=== PATIENT | male | born 1960 | race Caucasian/White ===

== ENCOUNTER 2018-09-26 10:15 | Inpatient (IN) | payer OTHER ==
[~2018-09-26 10:15] MED LIST: ceFAZolin 2 GM in Premix Bag 1 BAG IV SCH
[2018-09-26] MEDS ORDERED: Midazolam 1 MG/ML 2 ML SDV ONE (12:46)
[2018-09-26] MEDS ORDERED: fentaNYL 100 MCG/2 ML SDV ONE (12:46)
--- NOTE | 2018-09-26 12:46 | PCM.PREANE ---
Preanesthetic Assessment - Anesthesia/Transfusion/Family Hx Anesthesia History: Prior Anesthesia Without Reaction Family History of Anesthesia Reaction: No Transfusion History: No Prior Transfusion(s) - Review of Systems General: No Symptoms Pulmonary: No Symptoms Cardiovascular: No Symptoms Gastrointestinal: No Symptoms Other: Reports: None - Physical Assessment Height: 5 ft 10 in Weight: 68.039 kg ASA Class: 2 Mental Status: Alert & Oriented x3 Airway Class: Mallampati = 2 Dentition: Reports: Normal Dentition ROM/Head Extension: Full Lungs: Clear to Auscultation, Normal Respiratory Effort Cardiovascular: Regular Rate, Regular Rhythm - Allergies Allergies/Adverse Reactions: Allergies Allergy/AdvReac Type Severity Reaction Status Date / Time triple antibiotic ointment Allergy Itching Uncoded 09/21/18 15:21 - Blood Blood Available: No - Anesthesia Plan Pre-Op Medication Ordered: None - Acknowledgements Anesthesia Type Planned: Spinal Pt an Appropriate Candidate for the Planned Anesthesia: Yes Alternatives and Risks of Anesthesia Discussed w Pt/Guardian: Yes Pt/Guardian Understands and Agrees with Anesthesia Plan: Yes Additional Comments: PMH: smoker, chronic hep C, chronic LBP, PLAN: spinal with sedation PreAnesthesia Questionnaire - Past Health History Medical/Surgical History: Denies Medical/Surgical History HEENT History: Reports: Other (See Below) Other HEENT History: wears glasses Cardiovascular History: Reports: None Respiratory History: Reports: None Gastrointestinal History: Reports: Hepatitis Other Gastrointestinal History: states Hepatitis C positive, has not taken tx for this Genitourinary History: Reports: None Musculoskeletal History: Reports: Other (See Below) Other Musculoskeletal History: DJD Neurological History: Reports: Concussion Psychiatric History: Reports: PTSD Other Psychiatric History: does not take any medications Endocrine/Metabolic History: Reports: None Hematologic History: Reports: None Immunologic History: Reports: None Oncologic (Cancer) History: Reports: None Dermatologic History: Reports: Other (See Below) Other Dermatologic History: wound to rt hand, on antibiotics which will be completed prior to surgery - Infectious Disease History Infectious Disease History: Reports: None - Past Surgical History Head Surgeries/Procedures: Reports: None Musculoskeletal Surgical History: Reports: Hip Replacement, Other (See Below) Other Musculoskeletal Surgeries/Procedures:: left hip replaced twice (partial x1 , total x1), had rt hand debridement with Dr. Scott approximately 3 weeks ago, is currently on antibiotics for this, states will have completed prior to surgery and states his hand is healing well. - SUBSTANCE USE Smoking Status *Q: Current Every Day Smoker Tobacco Use Within Last Twelve Months: Cigarettes Recreational Drug Use History: Yes Recreational Drug Type: Reports: Marijuana/Hashish - HOME MEDS Home Medications: Home Meds . [No Known Home Meds] 09/21/18 [History] - CURRENT (IN HOUSE) MEDS Current Meds: Current Medications Cefazolin Sodium/Dextrose 2 gm (/ Premix) 50 mls @ 100 mls/hr IV ONETIME TIARRA Lactated Ringer's (Ringers, Lactated) 1,000 mls @ 125 mls/hr IV ASDIRECTED TIARRA Discontinued Medications Tranexamic Acid (Cyklokapron) 2,000 mg IV ONETIME ONE Stop: 09/26/18 07:01
[2018-09-26] MEDS ORDERED: Propofol 200 MG/20 ML SDV ONE (12:47)
[2018-09-26] MEDS: Lactated Ringers 1,000 ML IV SCH ×2 (12:49→21:23)
[2018-09-26] MEDS ORDERED: ceFAZolin/Dextrose,Iso-Osmotic 2 GM/50 ML Duplex Bag IV ONE (13:22)
[2018-09-26] MEDS ORDERED: ePHEDrine 50 MG/ML SDV ONE (13:55)
--- NOTE | 2018-09-26 15:21 | PCM.OPNOTE ---
- General Post-Op/Procedure Note Date of Surgery/Procedure: 09/26/18 Operative Procedure(s): right anterior total hip arthroplasty Findings: severe OA Pre Op Diagnosis: right hip osteoarthritis Post-Op Diagnosis: same Anesthesia Technique: Moderate Sedation, Spinal Primary Surgeon: Diony Carreon Mai Operator Technician: Lois Dickerson Pathology: femoral head EBL in mLs: 200 Complications: none Condition: Good
[2018-09-26] MEDS ORDERED: diphenhydrAMINE 25 MG Cap PO PRN (15:25)
[2018-09-26] MEDS ORDERED: Aluminum Hydroxide/Magnesium Hydroxide/Simethicone Susp 30 ML Cup PO PRN (15:25)
[2018-09-26] MEDS ORDERED: Ondansetron 4 MG/2 ML SDV IVPUSH PRN (15:25)
[2018-09-26] MEDS ORDERED: Docusate Sodium 100 MG Cap PO PRN (15:25)
[2018-09-26] MEDS ORDERED: Sodium Chloride 0.9% 2.5 ML Syringe FLUSH PRN (15:25)
[2018-09-26] MEDS ORDERED: Sodium Chloride 0.9% 10 ML Syringe FLUSH PRN (15:25)
[2018-09-26] MEDS ORDERED: Bisacodyl 10 MG Supp RECTAL PRN (15:25)
[2018-09-26] MEDS ORDERED: fentaNYL 100 MCG/2 ML SDV IVPUSH PRN (15:33)
[2018-09-26] MEDS ORDERED: HYDROmorphone 2 MG/ML SDV IVPUSH ONE (15:33)
[2018-09-26] MEDS ORDERED: HYDROmorphone 2 MG/ML Syringe IVPUSH ONE (15:45)
--- NOTE | 2018-09-26 15:54 | PCM.POSTAN ---
POST ANESTHESIA ASSESSMENT - MENTAL STATUS Mental Status: Alert, Oriented - RESPIRATORY Respiratory Status: Respiratory Rate WNL, Airway Patent, O2 Saturation Stable - CARDIOVASCULAR CV Status: Pulse Rate WNL, Blood Pressure Stable - GASTROINTESTINAL GI Status: No Symptoms - POST OP HYDRATION Hydration Status: Adequate & Stable
[2018-09-26] MEDS: Acetaminophen/HYDROcodone 325-5 MG Tab PO PRN (18:40)
[2018-09-26] MEDS ORDERED: Morphine 2 MG/ML Syringe IVPUSH PRN (18:55)
[2018-09-26] MEDS: ceFAZolin 2 GM in Premix Bag 1 BAG IV SCH (21:22)
[2018-09-27] MEDS: Acetaminophen/HYDROcodone 325-5 MG Tab PO PRN ×2 (03:14→08:28)
[2018-09-27] MEDS: ceFAZolin 2 GM in Premix Bag 1 BAG IV SCH (04:39)
[2018-09-27] MEDS ORDERED: Morphine 2 MG/ML Syringe IVPUSH PRN (06:00)
--- NOTE | 2018-09-27 06:41 | OR ---
SURGEON: Diony Casey MD DATE OF PROCEDURE: 09/26/2018 SPINDLE MAKER: Lois Dickerson PA-C. PREOPERATIVE DIAGNOSIS: Right hip osteoarthritis, severe. OPERATION PERFORMED: Right anterior total hip arthroplasty. ANESTHESIA: Spinal with sedation. COMPLICATIONS: None. ESTIMATED BLOOD LOSS: 200 mL. SPECIMENS: None. IMPLANTS: Damián Continuum trabecular metal shell with cluster holes, 54 mm outer diameter; Vivacit-E neutral liner, 36 mm inner diameter; one 6.5 x 30 mm length bone screw; Fitmore hip stem B extended offset size 10; and Biolox delta ceramic femoral head 36 mm, +3.5 neck length. INDICATIONS: The patient is a 58-year-old male with severe arthritis with collapse and acetabular erosion. He wished to undergo replacement. He understands the risks, benefits, and complications. These include, but not limited to, infection, neurovascular injury, continued pain or symptoms, DVT, PE, stroke, AK, , leg-length discrepancy, fracture, dislocation, and he wished to proceed. DESCRIPTION OF PROCEDURE: The patient was seen in the preoperative area. Operative extremity was marked of the patient. He was transferred to the operating room, where spinal anesthesia was given. He was placed supine on the Corona table, and sedation was given. The legs were placed in the leg bars with a narrow perineal post. Right hip was prepped and draped in the usual sterile fashion using alcohol followed by ChloraPrep. A formal time-out was taken, identifying the correct patient, procedure, and extremity. He received 2 g of TXA and Ioban coverings over the incision. Legs were placed in the leg bars on the Corona table. An 8 cm incision started lateral to the ASIS going obliquely to the femur was made. Dissection was carried down into subcutaneous tissues. Hemostasis was obtained. Fascia overlying the TFL lateral to the lateral femoral cutaneous nerve was opened and the interval between the TFL and sartorius deep between the abductors and rectus was opened. A deep Reginald retractor was placed. The anterior vessels were coagulated and the vastus lateralis fascia was opened. Two capsules held and tagged with two sutures. He had severe osteoarthritis with severe shortening. There were large osteophytes of the acetabulum obliterating the neck, can actually only seen about 1.5 cm of the neck. Neck was then cut from saddle region to 1 cm above the lesser trochanter and the head was with much diligence removed. There was severe arthritis with collapse and severe acetabular erosion going superiorly. The osteophytes were removed as well, and the inferior capsule was released, and then the hip was sequentially reamed from 47 up to 53 mm with excellent fit and fill. However, it was in far due to the severe acetabular bone loss and decision was made to stick with the size rather than to go up. Therefore, after irrigating, the Continuum trabecular metal shell with cluster holes was placed 10 degrees of anteversion and 40 degrees of abduction. One straight superior bone screw was placed and then inferior osteophytes removed with an osteotome under fluoroscopic control removing some of them to allow for better motion and then neutral liner was impacted after irrigating. The leg was externally rotated, abducted, and extended and placed in femoral lift. The superior capsule was released and the obturator internus and piriformis. It was noted that the capsule was almost an inch thick and had to be debulked during the case as well as synovitis removed. There were osteophytes throughout the hip including into the trochanter, which were also removed. The central canal finder was utilized. Hip was sequentially broached up to size B 9, was reduced to extended offset 0 neck length. The x-ray showed the hip be short than the other side slightly. Therefore, the hip was dislocated. It was broached up to size 10 following the [place] version. It was trial reduced with extended offset +3.5 neck length. Printed overlay technique showed essentially equal leg lengths and offset compared to the opposite side. Therefore, the hip was dislocated. The trial components were removed and the wound was thoroughly irrigated. Synovectomy was completed and then the B 10 extended offset stem was impacted following the [place] version and +3.5 Simeon taper, 36 mm inner diameter head was impacted. The hip was relocated with stable range of motion. It was able to externally rotate to 120 degrees, slightly extend. There was no dislocation and it was stable to deep flexion. Two tag sutures were tied together. The wound was thoroughly irrigated. The fascia was closed with #1 Vicryl, subcutaneous tissues with #2-0 Vicryl, skin with running 4-0 Monocryl with Dermabond tape. Aquacel dressing was placed. The patient was transferred to the recovery room in stable condition. Sponge and needle counts were correct at the end of the case with no complications. He will have weightbearing as tolerated with aspirin for DVT prophylaxis. ESTELA OLSEN /[id number]
--- NOTE | 2018-09-27 07:34 | PCM.SN ---
- Free Text/Narrative Note: S: pain well controlled. has not ambulated yet. tolerating PO. No other issues. O: afebrile, vital signs stable dressing clean/dry/intact. normal sensation and motor distally. 2+ DP. no selling in thigh or distally A/P: POD # 1 left anterior ANGEL - full weight bearing with walker - xarelto/SCDs for DVT prophylaxis - to home today.
--- NOTE | 2018-09-27 07:58 | PCM48HPAN ---
Post Anesthesia Note - EVALUATION WITHIN 48HRS OF ANESTHETIC Vital Signs in Normal Range: Yes Patient Participated in Evaluation: Yes Respiratory Function Stable: Yes Airway Patent: Yes Cardiovascular Function Stable: Yes Hydration Status Stable: Yes Pain Control Satisfactory: Yes Nausea and Vomiting Control Satisfactory: Yes Mental Status Recovered: Yes Resp Rate: 17 - COMMENTS/OBSERVATIONS Free Text/Narrative:: Pt doing well post op. States that pain was well controlled overnight with only one episode of breakthrough that was treated. No nausea.
[2018-09-27] MEDS ORDERED: Aspirin 325 MG Tab PO SCH (09:00)
[2018-09-27] MEDS ORDERED: Polyethylene Glycol 3350 Powder 17 GM Packet PO SCH (09:00)
[2018-09-27] MEDS ORDERED: Famotidine 20 MG Tab PO SCH (09:00)
[2018-09-27] MEDS ORDERED: Celecoxib 100 MG Cap PO SCH (09:00)
[2018-09-27 11:40] VITALS: BP 118/71
--- NOTE | 2018-09-27 15:41 | CR ---
EXAMINATION: Right hip HISTORY: Arthroplasty COMPARISON: None TECHNIQUE: 2 fluoroscopic images provided FINDINGS/IMPRESSION: Operative control films demonstrate right total hip hardware noted with overlying postoperative changes.
--- NOTE | 2018-09-28 13:33 | PCM.DCSUM1 ---
Discharge Summary - Hospital Course Brief History: Patient is admitted for elective hip replacement Diagnosis: Stroke: No - Discharge Data Discharge Date: 09/27/18 Discharge Disposition: Home, Self-Care 01 Condition: Good - Patient Summary/Data Operative Procedure(s) Performed: right anterior total hip arthroplasty Consults: Consultations 09/26/18 15:25 PT Evaluation and Treatment [CONS] Routine Hospital Course: He was admitted and underwent uneventful hip replacement. Postoperatively he was admitted to the floor where pain was controlled and diet was advanced. He participated in therapy and did well and was subsequently discharged home on postoperative day #1 - Patient Instructions Diet: Usual Diet as Tolerated Activity: Apply Ice, Full Weight Bearing Driving: Do Not Drive Showering/Bathing: May Shower Wound/Incision Care: Keep Operative Site/Wound Site Clean and Dry, Do NOT Change Dressing Notify Provider of: Fever, Drainage - Discharge Plan *PRESCRIPTION DRUG MONITORING PROGRAM REVIEWED*: Yes *COPY OF PRESCRIPTION DRUG MONITORING REPORT IN PATIENT CHARLIE: No Home Medications: Home Meds Acetaminophen 1,000 mg PO DAILY PRN 09/26/18 [History] Ibuprofen 800 mg PO DAILY PRN 09/26/18 [History] Patient Handouts: Acetaminophen; Hydrocodone tablets or capsules, Mesalamine delayed-release, Total Hip Replacement, [id number], Total Hip Replacement, Care After, [id number], Docusate capsules Referrals: Lois Dickerson PA [Physician [employer] Thread Machine Operator] - 10/11/18 3:20 pm - Discharge Summary/Plan Comment DC Time >30 min.: No - Patient Data Vitals - Most Recent: Last Vital Signs Temp 36.6 C 09/27/18 11:40 Pulse 86 09/27/18 11:40 Resp 16 09/27/18 11:40 BP 118/71 09/27/18 11:40 Pulse Ox 98 09/27/18 11:40 Weight - Most Recent: 68.039 kg Med Orders - Current: Current Medications Discontinued Medications Hydrocodone Bitart/Acetaminophen ([place] 325-5 Mg) 1 - 2 tab PO Q4H PRN PRN Reason: Pain Last Admin: 09/27/18 08:28 Dose: 2 tab Al Hydroxide/Mg Hydroxide (Mag-Al Plus) 30 ml PO Q4H PRN PRN Reason: Indigestion Aspirin (Aspirin) 325 mg PO BID TIARRA Last Admin: 09/27/18 08:28 Dose: 325 mg Bisacodyl (Dulcolax) 10 mg RECTAL DAILY PRN PRN Reason: Constipation Cefazolin Sodium/Dextrose (Ancef) Confirm Administered Dose 2 gm IV .STK-MED ONE Stop: 09/26/18 13:23 Last Admin: 09/26/18 16:56 Dose: Not Given Celecoxib (Celebrex) 200 mg PO BID [facility] Last Admin: 09/27/18 08:28 Dose: 200 mg Diphenhydramine HCl (Benadryl) 25 - 50 mg PO Q6H PRN PRN Reason: Itching Docusate Sodium (Colace) 100 mg PO BID PRN PRN Reason: Constipation Ephedrine Sulfate (Ephedrine Sulfate) Confirm Administered Dose 50 mg .ROUTE .STK-MED ONE Stop: 09/26/18 13:56 Famotidine (Pepcid) 40 mg PO DAILY [facility] Last Admin: 09/27/18 08:28 Dose: 40 mg Fentanyl (Sublimaze) Confirm Administered Dose 100 mcg .ROUTE .STK-MED ONE Stop: 09/26/18 12:47 Fentanyl (Sublimaze) 50 mcg IVPUSH Q5M PRN PRN Reason: Pain (severe 7-10) Stop: 09/27/18 15:34 Hydromorphone HCl (Dilaudid) 2 mg IVPUSH ONETIME ONE Stop: 09/26/18 15:34 Last Admin: 09/26/18 16:56 Dose: Not Given Hydromorphone HCl (Dilaudid) 2 mg IVPUSH ONETIME ONE Stop: 09/26/18 15:46 Last Admin: 09/26/18 16:56 Dose: Not Given Cefazolin Sodium/Dextrose 2 gm (/ Premix) 50 mls @ 100 mls/hr IV ONETIME [facility] Lactated Ringer's (Ringers, Lactated) 1,000 mls @ 125 mls/hr IV ASDIRECTED [facility] Last Admin: 09/26/18 21:23 Dose: 125 mls/hr Cefazolin Sodium/Dextrose 2 gm (/ Premix) 50 mls @ 100 mls/hr IV Q8H [facility] Stop: 09/27/18 05:59 Last Admin: 09/27/18 04:39 Dose: 100 mls/hr Midazolam HCl (Versed 1 Mg/Ml) Confirm Administered Dose 2 mg .ROUTE .STK-MED ONE Stop: 09/26/18 12:47 Morphine Sulfate (Morphine) 1 - 3 mg IVPUSH Q3H PRN PRN Reason: Pain Morphine Sulfate (Morphine) 1 - 3 mg IVPUSH Q3H PRN PRN Reason: Pain Last Admin: 09/26/18 21:59 Dose: 2 mg Ondansetron HCl (Zofran) 4 mg IVPUSH Q6H PRN PRN Reason: Nausea/Vomiting Polyethylene Glycol (Miralax) 17 gm PO DAILY TIARRA Last Admin: 09/27/18 08:31 Dose: 17 gm Propofol (Diprivan 20 Ml) Confirm Administered Dose 600 mg .ROUTE .STK-MED ONE Stop: 09/26/18 12:48 Sodium Chloride (Saline Flush) 10 ml FLUSH ASDIRECTED PRN PRN Reason: Keep Vein Open Sodium Chloride (Saline Flush) 2.5 ml FLUSH ASDIRECTED PRN PRN Reason: Keep Vein Open Tranexamic Acid (Cyklokapron) 2,000 mg IV ONETIME ONE Stop: 09/26/18 07:01 Last Admin: 09/26/18 16:55 Dose: Not Given Tranexamic Acid (Cyklokapron) Confirm Administered Dose 2,000 mg .ROUTE .STK- MED ONE Stop: 09/26/18 12:57
== END 2018-09-27 14:40 | disposition home or self-care (01) | DRG 470 ==
LOC: MW.MS 11:54
PROVIDERS: ADMIT Orthopaedic Surgery; ATTEND Orthopaedic Surgery
PROC: 0SR904Z Replacement of Right Hip Joint with Ceramic on Polyethylene Synthetic Substitute, Open Approach (ICD-10-PCS; principal; 2018-09-26)
DX: M16.11 Unilateral primary osteoarthritis, right hip (principal); F17.200 Nicotine dependence, unspecified, uncomplicated; G89.29 Other chronic pain; F43.10 Post-traumatic stress disorder, unspecified; M25.751 Osteophyte, right hip; M54.5 Low back pain; B18.2 Chronic viral hepatitis C; Z79.899 Other long term (current) drug therapy; Z96.642 Presence of left artificial hip joint; Z79.82 Long term (current) use of aspirin; Z88.8 Allergy status to other drugs, medicaments and biological substances
CPT/HCPCS: 36415; 76000; 76000-26; 85014; 85018; 97110-GP; 97161-GP; A9270-GY; C1713; C1776; J0690; J2250; J2270; J2704; J3010; J7120

== ENCOUNTER 2018-10-13 10:34 | Emergency (ER) | payer OTHER ==
[2018-10-13] MEDS ORDERED: Sodium Chloride 0.9% 2.5 ML Syringe FLUSH PRN (10:45)
[2018-10-13] MEDS ORDERED: Sodium Chloride 0.9% 10 ML Syringe FLUSH PRN (10:45)
--- NOTE | 2018-10-13 11:10 | EDM.PDOC ---
ED HPI GENERAL MEDICAL PROBLEM - General Chief Complaint: Respiratory Problem Stated Complaint: LIGHT HEADED SHORTNESS OF BREATH Time Seen by Provider: 10/13/18 10:55 Source of Information: Reports: Patient History Limitations: Reports: No Limitations - History of Present Illness INITIAL COMMENTS - FREE TEXT/NARRATIVE: HISTORY AND PHYSICAL: History of present illness: Patient is a 58-year-old male who presents to the emergency room with complaints of shortness of breath and feeling lightheaded when ambulating. He states symptoms started this morning and mentions concern of his postoperative hip. He had a total hip replacement on September 06, 2018. He has had some intermittent pain and irritation of the affected right hip. He did see the orthopedic provider this last Wednesday who encouraged him to keep a close eye on her postop site as they were concerned about possible infection (per patient). He states he has been ambulatory and has had no calf swelling, erythema or pain. He denies any chest pain, cough, fever or chills. He denies any abdominal pain, nausea, vomiting, diarrhea, constipation or dysuria. Review of systems: As per history of present illness and below otherwise all systems reviewed and negative. Past medical history: As per history of present illness and as reviewed below otherwise noncontributory. Surgical history: As per history of present illness and as reviewed below otherwise noncontributory. Social history: See social history for further information Family history: As per history of present illness and as reviewed below otherwise noncontributory. Physical exam: General: Well-developed and well-nourished 58-year-old male. Alert and oriented. Nontoxic appearing and in no acute distress. HEENT: Atraumatic, normocephalic, pupils equal and reactive bilaterally, negative for conjunctival pallor or scleral icterus, mucous membranes moist, TMs normal bilaterally, throat clear, neck supple, nontender, trachea midline. No drooling or trismus noted. No meningeal signs. No hot potato voice noted. Lungs: Clear to auscultation, breath sounds equal bilaterally, chest nontender. Heart: S1S2, regular rate and rhythm without overt murmur Abdomen: Soft, nondistended, nontender. Negative for masses or hepatosplenomegaly. Negative for costovertebral tenderness. Pelvis: Stable nontender. Genitourinary: Deferred. Rectal: Deferred. Skin: Postoperative site on the right hip has scab but well approximated. The surrounding skin is erythematous and warm to touch. Otherwise skin is intact, warm, dry. No lesions or rashes noted. Extremities: Atraumatic, moves all per self, right hip surgery, negative for cords or calf pain. Neurovascular unremarkable. Neuro: Awake, alert, oriented. Cranial nerves II through XII unremarkable. Cerebellum unremarkable. Motor and sensory unremarkable throughout. Exam nonfocal. Notes: I did talk with IRVING Magdaleno with Dr. Ley in the orthopedic clinic who did see this patient yesterday. She states that the hip did appear mildly erythematous and expected it due to the patient not having kept the postoperative site covered as expected. Patient was fully able to bear weight and had range of motion. Encouraged him to keep an eye on the site and keep her informed if any changes had occurred. I did tell her that the area was erythematous and felt warm to touch. Encouraged that we start him on Bactrim DS twice a day 10 days and she will see him tomorrow in the clinic at 1 PM unless he has any other reason for admission. D-dimer was elevated, CT of the chest was done to rule out PE. Slight elevation in WBC. Will give a 250ml bolus NS. VSS. CT of the chest shows suboptimal pulmonary arterial opacification, no central PE identified. A small PE could go undetected. Central lobular emphysema noted. Healed granulomatous disease. Vital signs are stable. All testing results were reviewed and discussed with patient. Discussed admission versus outpatient therapy. He is requesting to be discharged to home. We'll give the patient 1 g of Rocephin IV and prescribed the Bactrim DS. Encourage the patient to keep his appointment that we have set up with him with the orthopedic provider for tomorrow. He is agreeable to plan of care. Denies any further questions or concerns at this time. Diagnostics: CBC, CMP, Ddimer, Troponin, EKG, CXR, Right Hip Therapeutics: IV fluids, Solumedrol IV, Duo Neb, Rocephin, Bactrim DS Prescription: Bactrim DS Impression: Postoperative soft tissue infection Emphysema Plan: 1. Continue to keep the postoperative incision site clean and dry. Monitor for signs of improvement 2. Take the Bactrim the DS as directed. Continue with Tylenol and/or ibuprofen as needed for pain management. 3. Lois VILLATORO at the orthopedic provider at building will see you tomorrow at 1pm for re-evaluation. Please attend this appointment. 4. Return to the ED as needed and as discussed. Definitive disposition and diagnosis as appropriate pending reevaluation and review of above. Onset: Today - Related Data Allergies Allergy/AdvReac Type Severity Reaction Status Date / Time triple antibiotic ointment Allergy Itching Uncoded 10/13/18 10:41 Home Meds: Home Meds Acetaminophen 1,000 mg PO DAILY PRN 09/26/18 [History] Ibuprofen 800 mg PO DAILY PRN 09/26/18 [History] Aspirin 1 tab PO DAILY 10/13/18 [History] Past Medical History - Past Health History Medical/Surgical History: Denies Medical/Surgical History HEENT History: Reports: Other (See Below) Other HEENT History: wears glasses Cardiovascular History: Reports: None Respiratory History: Reports: None Gastrointestinal History: Reports: Hepatitis Other Gastrointestinal History: states Hepatitis C positive, has not taken tx for this Genitourinary History: Reports: None Musculoskeletal History: Reports: Other (See Below) Other Musculoskeletal History: DJD Neurological History: Reports: Concussion Psychiatric History: Reports: PTSD Other Psychiatric History: does not take any medications Endocrine/Metabolic History: Reports: None Hematologic History: Reports: None Immunologic History: Reports: None Oncologic (Cancer) History: Reports: None Dermatologic History: Reports: Other (See Below) Other Dermatologic History: wound to rt hand, on antibiotics which will be completed prior to surgery - Infectious Disease History Infectious Disease History: Reports: Hepatitis C - Past Surgical History Head Surgeries/Procedures: Reports: None Musculoskeletal Surgical History: Reports: Hip Replacement, Other (See Below) Other Musculoskeletal Surgeries/Procedures:: left hip replaced twice (partial x1 , total x1), had rt hand debridement with Dr. Scott approximately 3 weeks ago, is currently on antibiotics for this, states will have completed prior to surgery and states his hand is healing well. Social & Family History - Family History Family Medical History: Noncontributory - Tobacco Use Smoking Status *Q: Current Every Day Smoker Years of Tobacco use: 10 Packs/Tins Daily: 0.5 - Caffeine Use Caffeine Use: Reports: None - Recreational Drug Use Recreational Drug Use: No ED ROS GENERAL - Review of Systems Review Of Systems: ROS reveals no pertinent complaints other than HPI. ED EXAM, GENERAL - Physical Exam Exam: See Below (See dictation) Course - Vital Signs Last Recorded V/S: Last Vital Signs Temp 99.4 F 10/13/18 12:03 Pulse 95 10/13/18 12:03 Resp 18 10/13/18 12:03 BP 150/90 H 10/13/18 12:03 Pulse Ox 99 10/13/18 12:03 - Orders/Labs/Meds Orders: Active Orders 24 hr Category Date Time Status EKG Documentation Completion [RC] STAT Care 10/13/18 10:45 Active RT Aerosol Therapy [RC] ASDIRECTED Care 10/13/18 13:19 Ordered Hip Min 2V or 3V Rt [CR] Stat Exams 10/13/18 11:20 Taken CULTURE BLOOD [BC] Stat Lab 10/13/18 11:43 Ordered CULTURE BLOOD [BC] Stat Lab 10/13/18 11:57 Received Albuterol/Ipratropium [DuoNeb 3.0-0.5 MG/3 ML] Med 10/13/18 13:18 Once 3 ml NEB ONETIME ONE Sodium Chloride 0.9% [Normal Saline] 1,000 ml Med 10/13/18 12:47 Ordered IV STAT Sodium Chloride 0.9% [Saline Flush] Med 10/13/18 10:45 Active 10 ml FLUSH ASDIRECTED PRN Sodium Chloride 0.9% [Saline Flush] Med 10/13/18 10:45 Active 2.5 ml FLUSH ASDIRECTED PRN cefTRIAXone [Rocephin in Dextrose,Iso-Osm 1 GM/50 ML] 1 Med 10/13/18 13:12 Ordered gm Premix Bag 1 bag IV ONETIME methylPREDNISolone Sod Succ [Solu-MEDROL] Med 10/13/18 13:18 Once 125 mg IVPUSH ONETIME ONE Blood Culture x2 Reflex Set [OM.PC] Stat Oth 10/13/18 11:43 Ordered Saline Lock Insert [OM.PC] Stat Oth 10/13/18 10:45 Ordered Medication Orders Sodium Chloride (Normal Saline) 1,000 mls @ 999 mls/hr IV STAT ONE Stop: 10/13/18 13:47 Last Admin: 10/13/18 12:59 Dose: 999 mls/hr Ceftriaxone Sodium/Dextrose 1 (gm/ Premix) 50 mls @ 100 mls/hr IV ONETIME ONE Stop: 10/13/18 13:41 Last Admin: 10/13/18 13:18 Dose: 100 mls/hr Sodium Chloride (Saline Flush) 10 ml FLUSH ASDIRECTED PRN PRN Reason: Keep Vein Open Sodium Chloride (Saline Flush) 2.5 ml FLUSH ASDIRECTED PRN PRN Reason: Keep Vein Open Labs: Laboratory Tests 10/13/18 10/13/18 10/13/18 Range/Units 10:53 10:53 10:53 WBC 13.11 H (4.0-11.0) K/uL RBC 3.74 L (4.50-5.90) M/uL Hgb 10.1 L (13.0-17.0) g/dL Hct 31.1 L (38.0-50.0) % MCV 83.2 (80.0-98.0) fL MCH 27.0 (27.0-32.0) pg MCHC 32.5 (31.0-37.0) g/dL RDW Std Deviation 46.0 (28.0-62.0) fl RDW Coeff of Tolu 15 (11.0-15.0) % Plt Count 476 H (150-400) K/uL MPV 8.10 (7.40-12.00) fL Neut % (Auto) 85.0 H (48.0-80.0) % Lymph % (Auto) 5.3 L (16.0-40.0) % Robeson % (Auto) 8.2 (0.0-15.0) % Eos % (Auto) 1.3 (0.0-7.0) % Baso % (Auto) 0.2 (0.0-1.5) % Neut # (Auto) 11.2 H (1.4-5.7) K/uL Lymph # (Auto) 0.7 (0.6-2.4) K/uL Robeson # (Auto) 1.1 H (0.0-0.8) K/uL Eos # (Auto) 0.2 (0.0-0.7) K/uL Baso # (Auto) 0.0 (0.0-0.1) K/uL Nucleated RBC % 0.0 /100WBC Nucleated RBCs # 0 K/uL INR D-Dimer, Quantitative 5.56 H (0.0-0.50) mg/L FEU Lactate (0.20-2.00) mmol/L Sodium 133 L (136-148) mmol/L Potassium 4.1 (3.5-5.1) mmol/L Chloride 98 (98-107) mmol/L Carbon Dioxide 26.2 (21.0-32.0) mmol/L BUN 11 (7.0-18.0) mg/dL Creatinine 0.9 (0.8-1.3) mg/dL Est Cr Clr Drug Dosing 84.00 mL/min Estimated GFR (MDRD) > 60.0 ml/min Glucose 106 (74-106) mg/dL Calcium 9.1 (8.5-10.1) mg/dL Total Bilirubin 0.5 (0.2-1.0) mg/dL AST 20 (15-37) IU/L ALT 19 (14-63) IU/L Alkaline Phosphatase 168 H (46-116) U/L Troponin I < 0.050 (0.000-0.056) ng/mL Total Protein 7.1 (6.4-8.2) g/dL Albumin 3.0 L (3.4-5.0) g/dL Globulin 4.1 H (2.6-4.0) g/dL Albumin/Globulin Ratio 0.7 L (0.9-1.6) 10/13/18 10/13/18 Range/Units 10:53 11:57 WBC (4.0-11.0) K/uL RBC (4.50-5.90) M/uL Hgb (13.0-17.0) g/dL Hct (38.0-50.0) % MCV (80.0-98.0) fL MCH (27.0-32.0) pg MCHC (31.0-37.0) g/dL RDW Std Deviation (28.0-62.0) fl RDW Coeff of Tolu (11.0-15.0) % Plt Count (150-400) K/uL MPV (7.40-12.00) fL Neut % (Auto) (48.0-80.0) % Lymph % (Auto) (16.0-40.0) % Robeson % (Auto) (0.0-15.0) % Eos % (Auto) (0.0-7.0) % Baso % (Auto) (0.0-1.5) % Neut # (Auto) (1.4-5.7) K/uL Lymph # (Auto) (0.6-2.4) K/uL Robeson # (Auto) (0.0-0.8) K/uL Eos # (Auto) (0.0-0.7) K/uL Baso # (Auto) (0.0-0.1) K/uL Nucleated RBC % /100WBC Nucleated RBCs # K/uL INR 1.12 D-Dimer, Quantitative (0.0-0.50) mg/L FEU Lactate 1.3 (0.20-2.00) mmol/L Sodium (136-148) mmol/L Potassium (3.5-5.1) mmol/L Chloride (98-107) mmol/L Carbon Dioxide (21.0-32.0) mmol/L BUN (7.0-18.0) mg/dL Creatinine (0.8-1.3) mg/dL Est Cr Clr Drug Dosing mL/min Estimated GFR (MDRD) ml/min Glucose (74-106) mg/dL Calcium (8.5-10.1) mg/dL Total Bilirubin (0.2-1.0) mg/dL AST (15-37) IU/L ALT (14-63) IU/L Alkaline Phosphatase (46-116) U/L Troponin I (0.000-0.056) ng/mL Total Protein (6.4-8.2) g/dL Albumin (3.4-5.0) g/dL Globulin (2.6-4.0) g/dL Albumin/Globulin Ratio (0.9-1.6) Meds: Medications Generic Name Dose Route Start Last Admin Trade Name Freq PRN Reason Stop Dose Admin Sodium Chloride 1,000 mls @ 999 mls/hr 10/13/18 12:47 10/13/18 12:59 Normal Saline IV 10/13/18 13:47 999 mls/hr STAT ONE Administration Ceftriaxone Sodium/Dextrose 1 50 mls @ 100 mls/hr 10/13/18 13:12 10/13/18 13: 18 gm/ Premix IV 10/13/18 13:41 100 mls/hr ONETIME ONE Administration Sodium Chloride 10 ml 10/13/18 10:45 Saline Flush FLUSH ASDIRECTED PRN Keep Vein Open Sodium Chloride 2.5 ml 10/13/18 10:45 Saline Flush FLUSH ASDIRECTED PRN Keep Vein Open Discontinued Medications Generic Name Dose Route Start Last Admin Trade Name Freq PRN Reason Stop Dose Admin Iopamidol 50 ml 10/13/18 12:08 10/13/18 12:15 Isovue Multipack-370 (76%) IVPUSH 10/13/18 12:09 50 ml ONETIME STA Administration Trimethoprim/Sulfamethoxazole 1 tab 10/13/18 12:20 10/13/18 12:59 Septra Ds PO 10/13/18 12:21 1 tab ONETIME ONE Administration Departure - Departure Time of Disposition: 13:24 Disposition: Home, Self-Care 01 Clinical Impression: Postoperative wound infection of right hip Emphysema of lung Qualifiers: Emphysema type: centrilobular Qualified Code(s): J43.2 - Centrilobular emphysema - Discharge Information Referrals: PCP,None [Primary Care Provider] - Forms: ED Department Discharge Additional Instructions: The following information is given to patients seen in the emergency department who are being discharged to home. This information is to outline your options for follow-up care. We provide all patients seen in our emergency department with a follow-up referral. The need for follow-up, as well as the timing and circumstances, are variable depending upon the specifics of your emergency department visit. If you don't have a primary care physician on staff, we will provide you with a referral. We always advise you to contact your personal physician following an emergency department visit to inform them of the circumstance of the visit and for follow-up with them and/or the need for any referrals to a consulting specialist. The emergency department will also refer you to a specialist when appropriate. This referral assures that you have the opportunity for follow-up care with a specialist. All of these measure are taken in an effort to provide you with optimal care, which includes your follow-up. Under all circumstances we always encourage you to contact your private physician who remains a resource for coordinating your care. When calling for follow-up care, please make the office aware that this follow-up is from your recent emergency room visit. If for any reason you are refused follow-up, please contact the [facility] Emergency Department at and asked to speak to the emergency department charge nurse. [facility] [address] [address] [facility] Specialty [facility] - Orthopedic Clinic Professional [facility] [address] [place] [address], [address] [place] [address] 1. Continue to keep the postoperative incision site clean and dry. Monitor for signs of improvement 2. Take the Bactrim the DS as directed. Continue with Tylenol and/or ibuprofen as needed for pain management. 3. Lois VILLATORO at the orthopedic provider at [address] [place] [address] will see you tomorrow at 1pm for re-evaluation. Please attend this appointment. 4. Return to the ED as needed and as discussed. - My Orders Last 24 Hours: My Active Orders 10/13/18 10:45 EKG Documentation Completion [RC] STAT Sodium Chloride 0.9% [Saline Flush] 10 ml FLUSH ASDIRECTED PRN Sodium Chloride 0.9% [Saline Flush] 2.5 ml FLUSH ASDIRECTED PRN Saline Lock Insert [OM.PC] Stat 10/13/18 11:20 Hip Min 2V or 3V Rt [CR] Stat 10/13/18 11:43 CULTURE BLOOD [BC] Stat Blood Culture x2 Reflex Set [OM.PC] Stat 10/13/18 11:57 CULTURE BLOOD [BC] Stat 10/13/18 12:47 Sodium Chloride 0.9% [Normal Saline] 1,000 ml IV STAT 10/13/18 13:12 cefTRIAXone [Rocephin in Dextrose,Iso-Osm 1 GM/50 ML] 1 gm Premix Bag 1 bag IV ONETIME 10/13/18 13:18 Albuterol/Ipratropium [DuoNeb 3.0-0.5 MG/3 ML] 3 ml NEB ONETIME ONE methylPREDNISolone Sod Succ [Solu-MEDROL] 125 mg IVPUSH ONETIME ONE 10/13/18 13:19 RT Aerosol Therapy [RC] ASDIRECTED - Assessment/Plan Last 24 Hours: My Active Orders 10/13/18 10:45 EKG Documentation Completion [RC] STAT Sodium Chloride 0.9% [Saline Flush] 10 ml FLUSH ASDIRECTED PRN Sodium Chloride 0.9% [Saline Flush] 2.5 ml FLUSH ASDIRECTED PRN Saline Lock Insert [OM.PC] Stat 10/13/18 11:20 Hip Min 2V or 3V Rt [CR] Stat 10/13/18 11:43 CULTURE BLOOD [BC] Stat Blood Culture x2 Reflex Set [OM.PC] Stat 10/13/18 11:57 CULTURE BLOOD [BC] Stat 10/13/18 12:47 Sodium Chloride 0.9% [Normal Saline] 1,000 ml IV STAT 10/13/18 13:12 cefTRIAXone [Rocephin in Dextrose,Iso-Osm 1 GM/50 ML] 1 gm Premix Bag 1 bag IV ONETIME 10/13/18 13:18 Albuterol/Ipratropium [DuoNeb 3.0-0.5 MG/3 ML] 3 ml NEB ONETIME ONE methylPREDNISolone Sod Succ [Solu-MEDROL] 125 mg IVPUSH ONETIME ONE 10/13/18 13:19 RT Aerosol Therapy [RC] ASDIRECTED
[2018-10-13 12:01] LABS: CHLORIDE,CL 98 mmol/L (98-107); SODIUM,NA 133 mmol/L (136-148)
[2018-10-13] MEDS ORDERED: Iopamidol 755 MG/ML 500 ML Multipack Bottle IVPUSH STA (12:08)
[2018-10-13] MEDS ORDERED: Sulfamethoxazole/Trimethoprim 800-160 MG Tab PO ONE (12:20)
--- NOTE | 2018-10-13 12:46 | CR ---
EXAMINATION: Portable chest radiograph. HISTORY: Shortness of breath. Comparison: 09/15/2018. FINDINGS: The trachea is midline. The cardiomediastinal silhouette is within normal limits. No pulmonary infiltrates, effusions or pneumothorax. Mild chronic interstitial prominence and hyperinflation. Osseous structures appear unremarkable. Stable widened appearance of the left acromioclavicular joint. IMPRESSION: No acute cardiopulmonary process.
[2018-10-13] MEDS ORDERED: Sodium Chloride 0.9% 1,000 ML IV ONE (12:47)
--- NOTE | 2018-10-13 13:07 | CT ---
INDICATION: SOB. Weak. Recent surgery. Rule out pulmonary embolism. TECHNIQUE: Volumetric helical scanning of the thorax was performed during infusion of 50 cc of Isovue 370 contrast material IV, timing optimized for pulmonary arterial opacification. Coronal and sagittal reconstructions were obtained. COMPARISON: None. FINDINGS: The pulmonary arteries are less than optimally opacified. No central pulmonary arterial filling defect is identified. However, small peripheral emboli could go undetected. The heart size is normal. The lungs are clear. Mild centrilobular emphysema is noted. A large calcified granuloma is noted in the posterior right lower lobe base grade No pleural effusion is demonstrated. No significant airway abnormality is evident. No mediastinal or hilar lymphadenopathy is demonstrated. Calcified right hilar and subcarinal lymph nodes are noted. Images of the upper abdomen are unremarkable. IMPRESSION: 1. Suboptimal pulmonary arterial opacification. No central pulmonary embolus is identified. However, small peripheral emboli could go undetected. 2. Centrilobular emphysema. 3. Healed granulomas disease. Please note that all CT scans at this facility use dose modulation, iterative reconstruction, and/or weight-based dosing when appropriate to reduce radiation dose to as low as reasonably achievable. Dictated by Gilles Colilns MD @ Oct 13 2018 12:59PM Signed by Dr. Gilles Collins @ Oct 13 2018 1:06PM
[2018-10-13] MEDS ORDERED: cefTRIAXone 1 GM in Premix Bag 1 BAG IV ONE (13:12)
[2018-10-13] MEDS ORDERED: Albuterol/Ipratropium 3.0-0.5 MG/3 ML Neb Soln NEB ONE (13:18)
[2018-10-13] MEDS ORDERED: methylPREDNISolone Sodium Succinate 125 MG/2 ML SDV IVPUSH ONE (13:18)
--- NOTE | 2018-10-13 13:24 | CR ---
EXAMINATION: Right hip HISTORY: Erythema COMPARISON: 10/11/2018 TECHNIQUE: 2 views FINDINGS/IMPRESSION: Right total hip hardware is again noted, stable in position and alignment. Remaining visualized osseous structures appear normal. The mineralization is mildly osteopenic.
[2018-10-13 17:31] VITALS: BP 156/91
== END 2018-10-13 14:15 | disposition home or self-care (01) ==
LOC: EEVIPCON 10:34 → MW.ED 10:34
DX: T81.49XA Infection following a procedure, other surgical site, initial encounter (principal); J43.2 Centrilobular emphysema; F17.210 Nicotine dependence, cigarettes, uncomplicated; Z88.1 Allergy status to other antibiotic agents; Z79.82 Long term (current) use of aspirin; Z79.899 Other long term (current) drug therapy; Z96.642 Presence of left artificial hip joint
CPT/HCPCS: 36415; 71045; 71275; 73502; 80053; 83605; 84484; 85025; 85379; 85610; 87040; 93005; 94640; 96365; 96375; 99285; A9270; J0696; J2930; J7040; Q9967; 87186; J7620-GY

== ENCOUNTER 2019-05-10 08:00 | Inpatient (IN) | payer OTHER ==
[~2019-05-10 08:00] MED LIST changes: +Lactated Ringers 1,000 ML IV SCH; -ceFAZolin 2 GM in Premix Bag 1 BAG IV SCH
[2019-05-10] MEDS ORDERED: Midazolam 1 MG/ML 2 ML SDV ONE (11:16)
[2019-05-10] MEDS ORDERED: fentaNYL 100 MCG/2 ML SDV ONE ×2 (11:16→13:49)
[2019-05-10] MEDS ORDERED: Lidocaine 2% 5 ML SDV ONE (11:16)
[2019-05-10] MEDS ORDERED: Propofol 200 MG/20 ML SDV ONE ×3 (11:16→13:06)
[2019-05-10] MEDS ORDERED: Ketamine 500 mg/10 ML MDV ONE (11:35)
[2019-05-10] MEDS ORDERED: Sodium Chloride 0.9% 20 ML ONE (11:36)
--- NOTE | 2019-05-10 11:43 | PCM.PREANE ---
Preanesthetic Assessment - Anesthesia/Transfusion/Family Hx Anesthesia History: Prior Anesthesia Without Reaction Family History of Anesthesia Reaction: No Transfusion History: No Prior Transfusion(s) Intubation History: Unknown - Review of Systems General: No Symptoms Pulmonary: No Symptoms Cardiovascular: No Symptoms Gastrointestinal: No Symptoms Neurological: No Symptoms Other: Reports: None - Physical Assessment Vital Signs: Last Vital Signs Temp 35.9 C 05/10/19 11:16 Pulse 68 05/10/19 11:16 Resp 16 05/10/19 11:16 BP 154/99 H 05/10/19 11:16 Pulse Ox 96 05/10/19 11:16 Height: 5 ft 10 in Weight: 65.771 kg ASA Class: 2 Mental Status: Alert & Oriented x3 Airway Class: Mallampati = 2 Dentition: Reports: Normal Dentition (small chip front upper incisor) Thyro-Mental Finger Breadths: 3 Mouth Opening Finger Breadths: 2 ROM/Head Extension: Full Lungs: Clear to Auscultation, Normal Respiratory Effort Cardiovascular: Regular Rate, Regular Rhythm - Allergies Allergies/Adverse Reactions: Allergies Allergy/AdvReac Type Severity Reaction Status Date / Time "some antibiotic" Allergy Hives Uncoded 05/05/19 09:47 triple antibiotic ointment Allergy Itching Uncoded 10/13/18 10:41 - Blood Blood Available: No - Anesthesia Plan Pre-Op Medication Ordered: None - Acknowledgements Anesthesia Type Planned: Spinal (general anesthesia back-up plan) Pt an Appropriate Candidate for the Planned Anesthesia: Yes Alternatives and Risks of Anesthesia Discussed w Pt/Guardian: Yes Pt/Guardian Understands and Agrees with Anesthesia Plan: Yes PreAnesthesia Questionnaire - Past Health History Medical/Surgical History: Denies Medical/Surgical History HEENT History: Reports: Other (See Below) Other HEENT History: wears glasses Cardiovascular History: Reports: None Respiratory History: Reports: None Gastrointestinal History: Reports: Hepatitis Other Gastrointestinal History: states Hepatitis C positive, has not taken tx for this Genitourinary History: Reports: None Musculoskeletal History: Reports: Other (See Below) Other Musculoskeletal History: DJD Neurological History: Reports: Concussion Psychiatric History: Reports: ADD Endocrine/Metabolic History: Reports: None Hematologic History: Reports: None Immunologic History: Reports: None Oncologic (Cancer) History: Reports: None Dermatologic History: Reports: None, Other (See Below) - Infectious Disease History Infectious Disease History: Reports: Hepatitis C - Past Surgical History Head Surgeries/Procedures: Reports: None HEENT Surgical History: Reports: None Cardiovascular Surgical History: Reports: None Respiratory Surgical History: Reports: None GI Surgical History: Reports: None Male Surgical History: Reports: None Endocrine Surgical History: Reports: None Neurological Surgical History: Reports: None Musculoskeletal Surgical History: Reports: Hip Replacement, Other (See Below) Other Musculoskeletal Surgeries/Procedures:: left hip replaced twice (partial x1 , total x1), had rt hand debridement, rt hip replacement, removal of hardware to rt hip with placement of antibiotic spacer Oncologic Surgical History: Reports: None Dermatological Surgical History: Reports: None - SUBSTANCE USE Smoking Status *Q: Current Every Day Smoker (1/2 ppd) Tobacco Use Within Last Twelve Months: Cigarettes - HOME MEDS Home Medications: Home Meds Acetaminophen 1,000 mg PO ASDIRECTED PRN 09/26/18 [History] Ibuprofen 800 mg PO ASDIRECTED PRN 09/26/18 [History] - CURRENT (IN HOUSE) MEDS Current Meds: Current Medications Lactated Ringer's (Ringers, Lactated) 1,000 mls @ 100 mls/hr IV ASDIRECTED TIARRA Last Admin: 05/10/19 11:18 Dose: 100 mls/hr Cefazolin Sodium/Dextrose 2 gm (/ Premix) 50 mls @ 100 mls/hr IV ONETIME TIARRA Vancomycin HCl 1 gm/ Sodium (Chloride) 250 mls @ 166 mls/hr IV ONETIME ONE Stop: 05/10/19 14:26 Tranexamic Acid (Cyklokapron) 2,000 mg IV ONETIME ONE Stop: 05/10/19 12:01 Discontinued Medications Fentanyl (Sublimaze) Confirm Administered Dose 100 mcg .ROUTE .STK-MED ONE Stop: 05/10/19 11:17 Sodium Chloride (Normal Saline) Confirm Administered Dose 20 mls @ as directed .ROUTE .STK-MED ONE Stop: 05/10/19 11:37 Ketamine HCl (Ketalar) Confirm Administered Dose 500 mg .ROUTE .STK-MED ONE Stop: 05/10/19 11:36 Lidocaine (Xylocaine-Mpf 2%) Confirm Administered Dose 5 ml .ROUTE .STK-MED ONE Stop: 05/10/19 11:17 Midazolam HCl (Versed 1 Mg/Ml) Confirm Administered Dose 2 mg .ROUTE .STK-MED ONE Stop: 05/10/19 11:17 Propofol (Diprivan 20 Ml) Confirm Administered Dose 200 mg .ROUTE .STK-MED ONE Stop: 05/10/19 11:17 Propofol (Diprivan 20 Ml) Confirm Administered Dose 200 mg .ROUTE .STK-MED ONE Stop: 05/10/19 11:19
[2019-05-10] MEDS ORDERED: ceFAZolin 2 GM in Premix Bag 1 BAG IV SCH (12:00)
[2019-05-10] MEDS ORDERED: Phenylephrine/Normal Saline 100 MCG/ML 10 ML Syringe ONE (12:43)
[2019-05-10] MEDS ORDERED: Phenylephrine 1% 10 MG/ML SDV ONE (12:43)
[2019-05-10] MEDS ORDERED: Glycopyrrolate 0.2 MG/ML SDV ONE (12:53)
[2019-05-10] MEDS ORDERED: Naloxone 0.4 MG/ML Syringe IVPUSH PRN (13:31)
[2019-05-10] MEDS ORDERED: fentaNYL 100 MCG/2 ML SDV IVPUSH PRN (13:31)
[2019-05-10] MEDS ORDERED: Atropine 0.1 MG/ML 10 ML Syringe IVPUSH PRN ×2 (13:31)
[2019-05-10] MEDS ORDERED: Albuterol 0.083% 2.5 MG/3 ML Neb Soln NEB PRN (13:31)
[2019-05-10] MEDS ORDERED: EPINEPHrine 1:10,000 1 MG/10 ML Syringe IVPUSH PRN (13:31)
[2019-05-10] MEDS ORDERED: 50% Dextrose in Water 50 ML Syringe IVPUSH PRN (13:31)
--- NOTE | 2019-05-10 14:09 | PCM.OPNOTE ---
- General Post-Op/Procedure Note Date of Surgery/Procedure: 05/10/19 Operative Procedure(s): right total hip revision acetabulum and femur Findings: no signs of infection, intense scar Pre Op Diagnosis: right hip hx of infection antibiotic spacer Post-Op Diagnosis: same Anesthesia Technique: Moderate Sedation, Spinal Primary Surgeon: Diony Carreon Mai Base Manager: Lois Dickerson Base Manager: Hannah Marlow Pathology: deep tissue x3 for culture EBL in mLs: 400 Complications: none Condition: Good
[2019-05-10] MEDS ORDERED: Docusate Sodium 100 MG Cap PO PRN (14:22)
[2019-05-10] MEDS ORDERED: diphenhydrAMINE 25 MG Cap PO PRN (14:22)
[2019-05-10] MEDS ORDERED: Ondansetron 4 MG/2 ML SDV IVPUSH PRN (14:22)
[2019-05-10] MEDS ORDERED: Aluminum Hydroxide/Magnesium Hydroxide/Simethicone Susp 30 ML Cup PO PRN (14:22)
[2019-05-10] MEDS ORDERED: Bisacodyl 10 MG Supp RECTAL PRN (14:22)
[2019-05-10] MEDS ORDERED: Sodium Chloride 0.9% 2.5 ML Syringe FLUSH PRN (14:27)
[2019-05-10] MEDS ORDERED: Sodium Chloride 0.9% 10 ML Syringe FLUSH PRN (14:27)
--- NOTE | 2019-05-10 15:25 | PCM.POSTAN ---
POST ANESTHESIA ASSESSMENT - MENTAL STATUS Mental Status: Alert, Oriented - VITAL SIGNS Vital Signs: Last Vital Signs Temp 96.8 C H 05/10/19 14:26 Pulse 64 05/10/19 15:10 Resp 12 05/10/19 15:10 BP 118/78 05/10/19 15:10 Pulse Ox 98 05/10/19 15:10 - RESPIRATORY Respiratory Status: Respiratory Rate WNL, Airway Patent, O2 Saturation Stable - CARDIOVASCULAR CV Status: Pulse Rate WNL, Blood Pressure Stable - GASTROINTESTINAL GI Status: No Symptoms - PAIN Pain Score: 0 - POST OP HYDRATION Hydration Status: Adequate & Stable - OBSERVATIONS Free Text/Narrative:: no anesthesia problems
--- NOTE | 2019-05-10 15:52 | OR ---
SURGEON: Diony Casey MD DATE OF PROCEDURE: 05/10/2019 PRIMARY SURGEON: Diony Casey MD. ASSISTANTS: Lois Dickerson PA-C and DEAN Allen. PREOPERATIVE DIAGNOSIS: Previous right hip infection with antibiotic spacer. POSTOPERATIVE DIAGNOSIS: Previous right hip infection with antibiotic spacer. OPERATION PERFORMED: Right total hip revision arthroplasty of acetabular and femoral components. ANESTHESIA: Spinal with sedation. COMPLICATIONS: None. ESTIMATED BLOOD LOSS: 400 mL. SPECIMENS: Deep tissue x3 for culture. IMPLANTS: [employer] G7 OsseoTi acetabular shell 4-hole; neutral dual mobility acetabular liner; Avenir Melgoza lateral uncemented stem size 7; BIOLOX delta femoral ceramic femoral head, 28 mm diameter, 0 neck length; Dual Mobility E1 antioxidant infused polyethylene head size 46 mm. Also, the Dual Mobility acetabular liner was a 46 mm bearing size. Also, two 6.5 x 30 mm bone screws. INDICATIONS: The patient is a 59-year-old male who earlier this year underwent total hip arthroplasty. He had removed his dressing early and there was cellulitis followed by deep infection. He had explant and spacer placed in [place]. He presents now for revision arthroplasty. He has normal labs and negative aspiration. He understands the risks, benefits, alternatives, complications of the procedure including, but not limited to infection, neurovascular injury, continued pain, nonresolution of symptoms, DVT, PE, stroke, [place], , leg- length discrepancy, fracture, dislocation, and he wished to proceed. He is aware of continued deep infection, need for further surgery, and he is aware that he is short and we will attempt to get the leg out to equal length. PA and nurse practitioner were instrumental for positioning, draping, retraction, and reducing the leg as well as closing. DESCRIPTION OF PROCEDURE: The patient was seen in the preoperative area. Operative extremity was marked. The patient was transferred to the operating room. Spinal anesthesia was given. He was placed then in the left lateral decubitus position on the PEG board and padded all bony prominences with axillary roll. The right hip and leg were prepped and draped in sterile fashion using alcohol, followed by ChloraPrep with Ioban covering. A formal time-out was taken, identifying the correct patient, procedure, and extremity. 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 His previous posterior aspect of the greater trochanter was made. I did not use all of it, about 12 cm. Dissection was carried down through subcutaneous tissues. Hemostasis was obtained. IT band was opened. There were extensive amount of scar tissue under this, and Milian and Bovie needed to be used to delineate the greater trochanter and vastus lateralis. The abductors were found superiorly and retractors were placed under this, and then the entire posterior external rotator scar tissue and capsule were taken off in a sleeve up to the acetabulum. I was able to feel the sciatic nerve posteriorly and this protected throughout the case. The lesser trochanter was found and exposed, and portions of the iliopsoas removed off to get visualization. After complete mobilization of this, we were able to get into the joint. Extensive amount of scar tissue and this will have to be debulked over several minutes. At this point, rongeur and Bovie were used to clear off the tissue around the stem and then the ball was able to be removed, and the stem was able to be removed with an explant slap hammer. The blade was then placed back in neutral position and an anterior retractor was placed in the acetabulum. A Milian was used to expose posterior superior aspect of the acetabulum to expose the polyethylene and antibiotic behind this. This was able to be removed. Some of the cement had chipped off and this was able to be removed easily from the acetabulum. There was fibrinous material in this and this was curetted out and removed. He previously had a 54 cup placed and we then reamed from 53 to 57 mm. This then had good fit and fill. I did not go medially any further. There was good bleeding cancellous bone everywhere and all of the fibrinous material was removed. Following this, a [employer] G7 OsseoTi acetabular shell 4-hole was impacted in 40 degrees of abduction and approximately 20 degrees of anteversion. This had excellent press fit. There was no uncovering anteriorly. The 2 straight superior bone screws were placed and then after irrigating and cleaning out the dual mobility acetabular liner, neutral was impacted. Attention was then paid to the femur. The leg was internally rotated to 90 degrees and flexed up. Melgoza retractor was placed posteriorly. It was broached from a size 5 up to size 7 following the venetie version and this had excellent fit and fill. It was then trial reduced with a +3.5 neck. This showed no extension to the hip with a flexion contracture approximately 10-15 degrees and the leg to be slightly long. The hip was stable to range of motion. It did not dislocate to flexion over 110 degrees with extreme abduction and internal rotation. Hip was then dislocated and the trial components were removed. The wound was thoroughly irrigated. All fibrinous material from the femur was removed with a curette and then Avenir Melgoza stem size 7 lateral was impacted following the venetie version. It was then trial reduced with 0 neck length with dual mobility head reduced easily. Extension was back to 0 degrees. Leg lengths were equal on the table and it did not dislocate until over 110 degrees of flexion, complete abduction, and internal rotation to 70-80 degrees. It was then dislocated and after cleaning off the Simeon taper, the final ceramic head, 28 mm diameter, 0 neck length with the 46 mm dual mobility acetabular liner was impacted and the hip was reduced. The sleeve of the tissue posteriorly was then sewn back to the anterior tissue off the greater trochanter and abductors with #2 FiberWire with multiple runnings of this. The IT band was then closed with 2 separate running #1 Vicryl, subcutaneous tissues closed with 2-0 Stratafix, skin with running 4-0 Monocryl. Dermabond tape and Aquacel dressing were placed. The patient was transferred to recovery room in stable condition. Sponge and needle counts were correct at the end of the case. There were no complications. ESTELA OLSEN /[id number]
[2019-05-10] MEDS: Acetaminophen/HYDROcodone 325-7.5 MG Tab PO PRN (20:04)
[2019-05-10] MEDS: Morphine 2 MG/ML Syringe IVPUSH PRN (22:19)
[2019-05-11] MEDS: Morphine 2 MG/ML Syringe IVPUSH PRN ×2 (01:29→10:04)
--- NOTE | 2019-05-11 07:18 | PCM.SN ---
- Free Text/Narrative Note: Subjective: pain controlled with meds. Patient has gotten up to chair and walked in hallway. no cp/sob. no other issues and doing will. tolerating PO O: afebrile vital signs stable right hip - minimal pain to ROM, leg lengths equal. dressing is clean/dry/ intact with no drainage or surrounding erythema. minimal swelling in thigh and none distally. hgb 11.4 A/P: POD #1 right revision ANGEL - full weight bearing with walker. PT today. posterior hip precautions - ecotrin for DVT prophylaxis - home today, f/u 2 weeks. leave dressing on.
[2019-05-11] MEDS: Acetaminophen/HYDROcodone 325-7.5 MG Tab PO PRN (08:28)
[2019-05-11] MEDS ORDERED: Famotidine 20 MG Tab PO SCH (09:00)
[2019-05-11] MEDS ORDERED: Aspirin 325 MG Tab PO SCH (09:00)
[2019-05-11] MEDS ORDERED: Polyethylene Glycol 3350 Powder 17 GM Packet PO SCH (09:00)
--- NOTE | 2019-05-11 10:03 | PCM48HPAN ---
Post Anesthesia Note - EVALUATION WITHIN 48HRS OF ANESTHETIC Vital Signs in Normal Range: Yes Patient Participated in Evaluation: Yes Respiratory Function Stable: Yes Airway Patent: Yes Cardiovascular Function Stable: Yes Hydration Status Stable: Yes Pain Control Satisfactory: Yes Nausea and Vomiting Control Satisfactory: Yes Mental Status Recovered: Yes Vital Signs: Last Vital Signs Temp 37.4 C 05/11/19 04:00 Pulse 82 05/11/19 04:00 Resp 17 05/11/19 04:00 BP 131/71 05/11/19 04:00 Pulse Ox 96 05/11/19 04:00 - COMMENTS/OBSERVATIONS Free Text/Narrative:: no anesthesia problems
--- NOTE | 2019-05-11 11:34 | PCM.DCSUM1 ---
Discharge Summary - Hospital Course Brief History: patient was admitted for revision total hip arthroplasty due to previous infection Diagnosis: Stroke: No - Discharge Data Discharge Date: 05/11/19 Discharge Disposition: Home, Self-Care 01 Condition: Good - Patient Summary/Data Operative Procedure(s) Performed: right total hip revision acetabulum and femur Consults: Consultations 05/10/19 14:22 PT Evaluation and Treatment [CONS] Routine Hospital Course: patient was admitted and underwent uneventful hip revision. preliminary cultures were negative.he received vancomycin pre-and postop.Postoperatively he was admitted to the floor were his pain was controlled and his diet was advanced. He did well postoperatively and was discharged home on postoperative day #1. Hemoglobin remained stable. - Patient Instructions Diet: Usual Diet as Tolerated Activity: Apply Ice, Full Weight Bearing Activity, Other: posterior hip precautions Driving: Do Not Drive Showering/Bathing: May Shower Wound/Incision Care: Do NOT Change Dressing Notify Provider of: Fever, Swelling and Redness, Drainage - Discharge Plan *PRESCRIPTION DRUG MONITORING PROGRAM REVIEWED*: No *COPY OF PRESCRIPTION DRUG MONITORING REPORT IN PATIENT CHARLIE: No Home Medications: Home Meds Acetaminophen 1,000 mg PO ASDIRECTED PRN 09/26/18 [History] Ibuprofen 800 mg PO ASDIRECTED PRN 09/26/18 [History] Patient Handouts: Acetaminophen; Hydrocodone tablets or capsules, Aspirin capsules or tablets extended release Referrals: Lois Dickerson PA [Physician [employer]] - 05/23/19 9:00 am - Discharge Summary/Plan Comment DC Time >30 min.: No - Patient Data Vitals - Most Recent: Last Vital Signs Temp 36.9 C 05/11/19 08:00 Pulse 87 05/11/19 08:00 Resp 17 05/11/19 08:00 BP 127/68 05/11/19 08:00 Pulse Ox 95 05/11/19 08:00 Weight - Most Recent: 65.771 kg I&O - Last 24 hours: Intake & Output 05/10/19 05/11/19 05/11/19 22:59 06:59 14:59 Intake Total 2180 250 Balance 2180 250 Lab Results - Last 24 hrs: Laboratory Results - last 24 hr 05/11/19 Range/Units 06:22 Hgb 11.4 L (13.0-17.0) g/dL Hct 36.0 L (38.0-50.0) % JAYNE Results - Last 24 hrs: Microbiology 05/10/19 13:45 Gram Stain - Preliminary Hip, Right Med Orders - Current: Current Medications Hydrocodone Bitart/Acetaminophen ([place] 325-7.5 Mg) 1 - 2 tab PO Q4H PRN PRN Reason: Pain Last Admin: 05/11/19 08:28 Dose: 2 tab Al Hydroxide/Mg Hydroxide (Mag-Al Plus) 30 ml PO Q4H PRN PRN Reason: Indigestion Aspirin (Aspirin) 325 mg PO BID [facility] Last Admin: 05/11/19 08:28 Dose: 325 mg Bisacodyl (Dulcolax) 10 mg RECTAL DAILY PRN PRN Reason: Constipation Diphenhydramine HCl (Benadryl) 25 - 50 mg PO Q6H PRN PRN Reason: Itching Docusate Sodium (Colace) 100 mg PO BID PRN PRN Reason: Constipation Famotidine (Pepcid) 40 mg PO DAILY [facility] Last Admin: 05/11/19 08:28 Dose: 40 mg Morphine Sulfate (Morphine) 1 - 3 mg IVPUSH Q3H PRN PRN Reason: Pain Last Admin: 05/11/19 10:04 Dose: 2 mg Ondansetron HCl (Zofran) 4 mg IVPUSH Q6H PRN PRN Reason: Nausea/Vomiting Polyethylene Glycol (Miralax) 17 gm PO DAILY [facility] Last Admin: 05/11/19 08:28 Dose: 17 gm Sodium Chloride (Saline Flush) 10 ml FLUSH ASDIRECTED PRN PRN Reason: Keep Vein Open Sodium Chloride (Saline Flush) 2.5 ml FLUSH ASDIRECTED PRN PRN Reason: Keep Vein Open Discontinued Medications Albuterol (Proventil Neb Soln) 2.5 mg NEB ONETIME PRN PRN Reason: Wheezing Atropine Sulfate (Atropine 0.1 Mg/Ml) 0.5 mg IVPUSH ASDIRECTED PRN PRN Reason: Hypo-perfusion Atropine Sulfate (Atropine 0.1 Mg/Ml) 1 mg IVPUSH ASDIRECTED PRN PRN Reason: Hypo-Perfusion Dextrose/Water (Dextrose 50% In Water) 50 ml IVPUSH ASDIRECTED PRN PRN Reason: Hypoglycemia Epinephrine HCl (Epinephrine 1:10,000) 1 mg IVPUSH ASDIRECTED PRN PRN Reason: ACLS Guidelines Fentanyl (Sublimaze) Confirm Administered Dose 100 mcg .ROUTE .STK-MED ONE Stop: 05/10/19 11:17 Fentanyl (Sublimaze) 50 - 100 mcg IVPUSH Q5M PRN PRN Reason: Pain Fentanyl (Sublimaze) Confirm Administered Dose 100 mcg .ROUTE .STK-MED ONE Stop: 05/10/19 13:50 Glycopyrrolate (Robinul) Confirm Administered Dose 0.2 mg .ROUTE .STK-MED ONE Stop: 05/10/19 12:54 Lactated Ringer's (Ringers, Lactated) 1,000 mls @ 100 mls/hr IV ASDIRECTED TIARRA Last Admin: 05/10/19 11:18 Dose: 100 mls/hr Cefazolin Sodium/Dextrose 2 gm (/ Premix) 50 mls @ 100 mls/hr IV ONETIME TIARRA Vancomycin HCl 1 gm/ Sodium (Chloride) 250 mls @ 166 mls/hr IV ONETIME ONE Stop: 05/10/19 14:26 Last Admin: 05/10/19 19:49 Dose: Not Given Sodium Chloride (Normal Saline) Confirm Administered Dose 20 mls @ as directed .ROUTE .STK-MED ONE Stop: 05/10/19 11:37 Vancomycin HCl 1 gm/ Sodium (Chloride) 250 mls @ 166 mls/hr IV ONETIME TIARRA Ketamine HCl (Ketalar) Confirm Administered Dose 500 mg .ROUTE .STK-MED ONE Stop: 05/10/19 11:36 Lidocaine (Xylocaine-Mpf 2%) Confirm Administered Dose 5 ml .ROUTE .STK-MED ONE Stop: 05/10/19 11:17 Midazolam HCl (Versed 1 Mg/Ml) Confirm Administered Dose 2 mg .ROUTE .STK-MED ONE Stop: 05/10/19 11:17 Naloxone HCl (Narcan) 0.1 mg IVPUSH ASDIRECTED PRN PRN Reason: Respiratory Depression Phenylephrine HCl (Phenylephrine In Ns 100 Mcg/Ml) Confirm Administered Dose 1 mg .ROUTE .STK-MED ONE Stop: 05/10/19 12:44 Phenylephrine HCl (Jabari-Synephrine) Confirm Administered Dose 10 mg .ROUTE .STK- MED ONE Stop: 05/10/19 12:44 Propofol (Diprivan 20 Ml) Confirm Administered Dose 200 mg .ROUTE .STK-MED ONE Stop: 05/10/19 11:17 Propofol (Diprivan 20 Ml) Confirm Administered Dose 200 mg .ROUTE .STK-MED ONE Stop: 05/10/19 11:19 Propofol (Diprivan 20 Ml) Confirm Administered Dose 200 mg .ROUTE .STK-MED ONE Stop: 05/10/19 13:07 Tranexamic Acid (Cyklokapron) 2,000 mg IV ONETIME ONE Stop: 05/10/19 12:01 Last Admin: 05/10/19 19:47 Dose: Not Given
[2019-05-11 12:20] VITALS: BP 110/63
== END 2019-05-11 15:30 | disposition home or self-care (01) | DRG 468 ==
LOC: MW.MS 10:51 → MW.ICU 15:45 → MW.MS 23:03
PROVIDERS: ADMIT Orthopaedic Surgery; ATTEND Orthopaedic Surgery
PROC: 0SR90JA Replacement of Right Hip Joint with Synthetic Substitute, Uncemented, Open Approach (ICD-10-PCS; principal; 2019-05-10)
PROC: 0SP90JZ Removal of Synthetic Substitute from Right Hip Joint, Open Approach (ICD-10-PCS; 2019-05-10)
DX: T84.51XA Infection and inflammatory reaction due to internal right hip prosthesis, initial encounter (principal); M16.11 Unilateral primary osteoarthritis, right hip; D64.9 Anemia, unspecified; F41.9 Anxiety disorder, unspecified; Z79.82 Long term (current) use of aspirin; Z79.899 Other long term (current) drug therapy; Z88.1 Allergy status to other antibiotic agents
CPT/HCPCS: 36415; 85014; 85018; 87070; 87075; 87205; 88300; 97110-GP; 97161-GP; A9270-GY; J2001; J2250; J2270; J2370; J2704; J3010; J3490; J7120

== ENCOUNTER 2024-08-16 20:08 | Emergency (ER) | payer OTHER ==
[2024-08-16 20:39] VITALS: BP 137/85
[2024-08-16 22:18] VITALS: PULSE 76
== END 2024-08-16 22:18 | disposition home or self-care (01) ==
LOC: MW.ED 20:08
DX: S76.011A Strain of muscle, fascia and tendon of right hip, initial encounter (principal); F17.210 Nicotine dependence, cigarettes, uncomplicated; Z96.643 Presence of artificial hip joint, bilateral; Z88.1 Allergy status to other antibiotic agents; Z75.8 Other problems related to medical facilities and other health care; X50.1XXA Overexertion from prolonged static or awkward postures, initial encounter
CPT/HCPCS: 73502-26-RT; 73502-RT; 99283

== ENCOUNTER 2024-11-23 13:22 | Emergency (ER) | payer OTHER ==
[2024-11-23 14:02] VITALS: BP 107/87; PULSE 84
== END 2024-11-23 14:12 ==
LOC: MW.ED 13:22
DX: R03.0 Elevated blood-pressure reading, without diagnosis of hypertension (principal); Z13.9 Encounter for screening, unspecified; Z75.8 Other problems related to medical facilities and other health care; Z88.8 Allergy status to other drugs, medicaments and biological substances
CPT/HCPCS: 99282; 99283